=== PATIENT | female | born 1950 | race Caucasian/White ===

== ENCOUNTER 2017-06-20 10:47 | Emergency (ER) | payer MEDICARE, OTHER ==
[~2017-06-20] VITALS: Ht 157.5 cm; Wt 71.4 kg
[2017-06-20] MEDS ORDERED: CLARITIN 1010 MG/TAB PO (11:06)
[2017-06-20] MEDS ORDERED: SUDAFED 12HR120 MG PO (11:06)
[2017-06-20] MEDS ORDERED: AUGMENTIN 875-1 EAC1 PO (11:14)
[2017-06-20 11:20] VITALS: BP 134/84
== END 2017-06-20 11:23 | disposition home or self-care (01) ==
LOC: ED 10:47
DX: H92.02 Otalgia, left ear (principal); H65.02 Acute serous otitis media, left ear

== ENCOUNTER → 2017-12-07 | Outpatient (CLI) | payer MEDICARE, OTHER ==
[~2017-12-07] MED LIST: AUGMENTIN 875-1 EAC1 PO; CLARITIN 1010 MG/TAB PO; SUDAFED 12HR120 MG PO
== END ==
LOC: LAB 07:26
DX: R05 Cough (principal)

== ENCOUNTER → 2018-03-18 | Outpatient (CLI) | payer MEDICARE, OTHER ==
[2018-03-18 14:57] LABS: BASO # 0.1 (0.02-0.10); EOS # 0.2 (0.04-0.40); EOS % 2.2 % (1.0-5.0); HEMATOCRIT 36.6 % (37.0-47.0); HEMOGLOBIN 11.9 g/dL (12.5-16.0); LYMPH# 2.1 (1.50-4.00); MEAN CELL VOLUME 90 fl (78-100); MEAN CORPUSCULAR HEMOGLOBIN 29 pg (27-31); MEAN CORPUSCULAR HGB CONC 33 g/dL (33-37); MEAN PLATELET VOLUME 10.5 fl (7.4-10.4); MONO # 0.8 (0.20-0.80); NEU # 6.2 (1.40-6.50); PLATELET COUNT 349 K/mm3 (130-400); RED BLOOD COUNT 4.07 M/mm3 (4.10-5.30); RED CELL DISTRIBUTION WIDTH 14.7 % (11.5-14.5); WHITE BLOOD COUNT 9.4 K/mm3 (4.8-10.8)
[2018-03-18 15:21] LABS: ALBUMIN 4.3 g/dL (3.5-5.0); BUN/CREATININE RATIO 21.2 (6.0-26.0); CALCIUM 9.6 mg/dL (8.4-10.2); POTASSIUM 4.1 mmol/L (3.6-5.0); TOTAL BILIRUBIN 0.4 mg/dL (0.2-1.3); TOTAL PROTEIN 7.6 g/dL (6.3-8.2)
[2018-03-18 16:45] LABS: PH-URINE 6.5 (5.0 - 8.0); URINE APPEARANCE CLEAR; URINE COLOR YELLOW
[2018-03-18 16:46] LABS: URINE BILIRUBIN NEGATIVE (NEGATIVE); URINE BLOOD TRACE (NEGATIVE); URINE GLUCOSE NEGATIVE (NEGATIVE); URINE KETONE NEGATIVE (NEGATIVE); URINE LEUKOCYTE ESTERASE NEGATIVE (NEGATIVE); URINE NITRATE NEGATIVE (NEGATIVE); URINE PROTEIN(semi-quant) TRACE mg/dL (NEGATIVE); URINE UROBILINOGEN NORMAL (NORMAL)
[2018-03-19 00:47] LABS: FOLLICLE STIMULATING HORMONE 34.7 mIU/mL (()); LUTENIZING HORMONE 18.9 mIU/mL (()); PROGESTERONE 0.1 ng/mL (())
== END ==
LOC: LAB 14:13
PROVIDERS: Family Medicine
DX: Z00.00 Encounter for general adult medical examination without abnormal findings (principal); R73.9 Hyperglycemia, unspecified; E78.5 Hyperlipidemia, unspecified; R23.2 Flushing

== ENCOUNTER → 2018-04-07 | Outpatient (CLI) | payer MEDICARE, OTHER | LOC: MAMMO 08:19 | DX: Z12.31 Encounter for screening mammogram for malignant neoplasm of breast (principal) ==

== ENCOUNTER → 2018-09-08 | Outpatient (CLI) | payer MEDICARE, OTHER | LOC: RAD 07:13 | DX: K57.30 Diverticulosis of large intestine without perforation or abscess without bleeding (principal); Z90.49 Acquired absence of other specified parts of digestive tract; Z90.710 Acquired absence of both cervix and uterus | CPT/HCPCS: Q9967 ==

== ENCOUNTER → 2018-12-28 | Outpatient (CLI) | payer MEDICARE, OTHER | LOC: RAD 07:00 | DX: S83.281A Other tear of lateral meniscus, current injury, right knee, initial encounter (principal); M17.11 Unilateral primary osteoarthritis, right knee ==

== ENCOUNTER → 2019-05-01 | Outpatient (CLI) | payer MEDICARE, OTHER ==
[2019-05-01 07:15] LABS: BASO # 0.1 (0.02-0.10); EOS # 0.2 (0.04-0.40); EOS % 2.9 % (1.0-5.0); HEMATOCRIT 37.3 % (37.0-47.0); HEMOGLOBIN 11.8 g/dL (12.5-16.0); LYMPH# 2.3 (1.50-4.00); MEAN CELL VOLUME 90 fl (78-100); MEAN CORPUSCULAR HEMOGLOBIN 28 pg (27-31); MEAN CORPUSCULAR HGB CONC 32 g/dL (33-37); MEAN PLATELET VOLUME 10.2 fl (7.4-10.4); MONO # 0.5 (0.20-0.80); NEU # 2.8 (1.40-6.50); PLATELET COUNT 322 K/mm3 (130-400); RED BLOOD COUNT 4.15 M/mm3 (4.10-5.30); RED CELL DISTRIBUTION WIDTH 13.9 % (11.5-14.5); WHITE BLOOD COUNT 5.9 K/mm3 (4.8-10.8)
[2019-05-01 07:58] LABS: ALBUMIN 3.8 g/dL (3.4-4.8); CALCIUM 9.4 mg/dL (8.3-10.5); POTASSIUM 4.1 mmol/L (3.5-5.1); TOTAL PROTEIN 7.3 g/dL (6.2-8.1)
[2019-05-01 08:23] LABS: TOTAL BILIRUBIN 0.3 mg/dL (0.2-1.2)
[2019-05-01 08:26] LABS: URINE APPEARANCE HAZY; URINE BILIRUBIN NEGATIVE (NEGATIVE); URINE BLOOD 50 ery/uL (NEGATIVE); URINE COLOR YELLOW; URINE GLUCOSE NEGATIVE (NEGATIVE); URINE KETONE NEGATIVE (NEGATIVE); URINE LEUKOCYTE ESTERASE NEGATIVE (NEGATIVE); URINE MUCUS PRESENT (NOT PRESENT); URINE NITRATE NEGATIVE (NEGATIVE); URINE PROTEIN(semi-quant) TRACE mg/dL (NEGATIVE); URINE UROBILINOGEN NORMAL (NORMAL)
== END ==
LOC: LAB 06:47
PROVIDERS: Family Medicine
DX: Z00.00 Encounter for general adult medical examination without abnormal findings (principal); R73.9 Hyperglycemia, unspecified; E66.9 Obesity, unspecified; R23.2 Flushing

== ENCOUNTER → 2019-05-08 | Outpatient (CLI) | payer MEDICARE, OTHER | LOC: RAD 14:08 | DX: Z12.31 Encounter for screening mammogram for malignant neoplasm of breast (principal); R05 Cough ==

== ENCOUNTER → 2019-05-25 | Outpatient (CLI) | payer MEDICARE, OTHER | LOC: MAMMO 08:20 | DX: Z12.31 Encounter for screening mammogram for malignant neoplasm of breast (principal); R05 Cough ==

== ENCOUNTER → 2019-10-30 | Outpatient (CLI) | payer MEDICARE, OTHER ==
[2019-10-30 12:56] LABS: EOS # 0.1 (0.04-0.40); EOS % 1.6 % (1.0-5.0); HEMATOCRIT 37.5 % (37.0-47.0); HEMOGLOBIN 11.8 g/dL (12.5-16.0); MEAN CELL VOLUME 92 fl (78-100); MEAN CORPUSCULAR HEMOGLOBIN 29 pg (27-31); MEAN CORPUSCULAR HGB CONC 32 g/dL (33-37); MEAN PLATELET VOLUME 10.1 fl (7.4-10.4); MONO # 0.8 (0.20-0.80); NEU # 5.8 (1.40-6.50); PLATELET COUNT 343 K/mm3 (130-400); RED CELL DISTRIBUTION WIDTH 14.4 % (11.5-14.5); WHITE BLOOD COUNT 8.7 K/mm3 (4.8-10.8)
[2019-10-30 13:15] LABS: ALBUMIN 4.3 g/dL (3.4-4.8)
[2019-10-30 13:16] LABS: POTASSIUM 4.2 mmol/L (3.5-5.1)
[2019-10-30 13:17] LABS: CALCIUM 9.2 mg/dL (8.3-10.5)
[2019-10-30 13:18] LABS: TOTAL PROTEIN 7.8 g/dL (6.2-8.1)
[2019-10-30 13:20] LABS: TOTAL BILIRUBIN 0.4 mg/dL (0.2-1.2)
== END ==
LOC: RAD 12:38
PROVIDERS: Family Medicine
DX: K57.30 Diverticulosis of large intestine without perforation or abscess without bleeding (principal); D64.9 Anemia, unspecified

== ENCOUNTER → 2019-11-03 | Outpatient (CLI) | payer MEDICARE, OTHER | LOC: LAB 07:11 | DX: D64.9 Anemia, unspecified (principal); R10.9 Unspecified abdominal pain; R19.7 Diarrhea, unspecified ==

== ENCOUNTER → 2020-09-30 | Outpatient (CLI) | payer MEDICARE, OTHER ==
[2020-09-30 08:03] LABS: BASO # 0.1 (0.02-0.10); EOS # 0.2 (0.04-0.40); EOS % 2.5 % (1.0-5.0); HEMATOCRIT 35.9 % (37.0-47.0); HEMOGLOBIN 11.4 g/dL (12.5-16.0); LYMPH# 1.9 (1.50-4.00); MEAN CELL VOLUME 91 fl (78-100); MEAN CORPUSCULAR HEMOGLOBIN 29 pg (27-31); MEAN CORPUSCULAR HGB CONC 32 g/dL (33-37); MEAN PLATELET VOLUME 10.5 fl (7.4-10.4); MONO # 0.6 (0.20-0.80); NEU # 5.8 (1.40-6.50); PLATELET COUNT 338 K/mm3 (130-400); RED BLOOD COUNT 3.93 M/mm3 (4.10-5.30); RED CELL DISTRIBUTION WIDTH 14.2 % (11.5-14.5); TOTAL BILIRUBIN 0.4 mg/dL (0.2-1.2); WHITE BLOOD COUNT 8.5 K/mm3 (4.8-10.8)
[2020-09-30 08:29] LABS: URINE APPEARANCE CLEAR; URINE BILIRUBIN NEGATIVE (NEGATIVE); URINE COLOR YELLOW; URINE GLUCOSE NEGATIVE (NEGATIVE); URINE KETONE NEGATIVE (NEGATIVE); URINE NITRATE NEGATIVE (NEGATIVE); URINE PROTEIN(semi-quant) TRACE mg/dL (NEGATIVE); URINE UROBILINOGEN NORMAL (NORMAL)
[2020-09-30 08:30] LABS: URINE BLOOD 50 ery/uL (NEGATIVE); URINE LEUKOCYTE ESTERASE NEGATIVE (NEGATIVE); URINE MUCUS PRESENT (NOT PRESENT)
[2020-09-30 10:15] LABS: ALBUMIN 4.2 g/dL (3.4-4.8); CALCIUM 9.1 mg/dL (8.3-10.5); TOTAL PROTEIN 7.7 g/dL (6.2-8.1)
== END ==
LOC: LAB 07:09
PROVIDERS: Family Medicine
DX: Z00.00 Encounter for general adult medical examination without abnormal findings (principal); R73.9 Hyperglycemia, unspecified

== ENCOUNTER → 2020-10-07 | Outpatient (CLI) | payer MEDICARE, OTHER | LOC: RAD 09:58 | DX: Z13.820 Encounter for screening for osteoporosis (principal) ==

== ENCOUNTER → 2020-10-07 | Outpatient (CLI) | payer MEDICARE, OTHER | LOC: MAMMO 09-19 08:30 | DX: Z12.31 Encounter for screening mammogram for malignant neoplasm of breast (principal) ==

== ENCOUNTER → 2021-01-14 | Outpatient (CLI) | payer MEDICARE, OTHER ==
[~2021-01-14] MED LIST changes: +PREMARIN 0.60.625 M1 PO
== END ==
LOC: LAB 16:02
DX: E55.9 Vitamin D deficiency, unspecified (principal)

== ENCOUNTER → 2021-05-03 | Outpatient (CLI) | payer MEDICARE, OTHER | LOC: LAB 11:50 | DX: U07.1 COVID-19 (principal) ==

== ENCOUNTER 2021-07-07 16:21 | Emergency (ER) | payer MEDICARE, OTHER ==
[~2021-07-07] VITALS: Ht 157.5 cm; Wt 71.4 kg
[~2021-07-07 16:21] MED LIST changes: -PREMARIN 0.60.625 M1 PO
[2021-07-07] MEDS ORDERED: PREMARIN 0.60.625 M1 PO (16:40)
[2021-07-07 18:51] VITALS: BP 182/91
== END 2021-07-07 19:02 | disposition home or self-care (01) ==
LOC: ED 16:21
DX: S09.90XA Unspecified injury of head, initial encounter (principal); E66.9 Obesity, unspecified; Z68.28 Body mass index [BMI] 28.0-28.9, adult; W01.198A Fall on same level from slipping, tripping and stumbling with subsequent striking against other object, initial encounter

== ENCOUNTER → 2021-07-14 | Outpatient (CLI) | payer MEDICARE, OTHER ==
[~2021-07-14] MED LIST changes: +PREMARIN 0.60.625 M1 PO
[2021-07-14 07:17] LABS: HEMATOCRIT 40.1 % (37.0-47.0); HEMOGLOBIN 12.7 g/dL (12.5-16.0); MEAN PLATELET VOLUME 10.1 fl (7.4-10.4); RED BLOOD COUNT 4.4 M/mm3 (4.10-5.30); WHITE BLOOD COUNT 8.4 K/mm3 (4.8-10.8)
[2021-07-14 07:29] LABS: ALBUMIN 4.3 g/dL (3.4-4.8); POTASSIUM 4.1 mmol/L (3.5-5.1)
[2021-07-14 07:32] LABS: TOTAL PROTEIN 8.2 g/dL (6.2-8.1)
[2021-07-14 07:34] LABS: TOTAL BILIRUBIN 0.6 mg/dL (0.2-1.2)
== END ==
LOC: LAB 06:52
PROVIDERS: Family Medicine
DX: I63.81 Other cerebral infarction due to occlusion or stenosis of small artery (principal)

== ENCOUNTER → 2021-07-18 | Outpatient (CLI) | payer MEDICARE, OTHER | LOC: RAD 14:58 | DX: I63.81 Other cerebral infarction due to occlusion or stenosis of small artery (principal) ==

== ENCOUNTER → 2021-09-11 | Outpatient (CLI) | payer MEDICARE, OTHER | LOC: RAD 17:58 | DX: S06.9X0A Unspecified intracranial injury without loss of consciousness, initial encounter (principal); W19.XXXA Unspecified fall, initial encounter ==

== ENCOUNTER → 2023-12-13 | Outpatient (CLI) | payer MEDICARE, OTHER ==
[2023-12-13 07:18] LABS: BASO # 0.06 K/mm3 (0.02-0.10); EOS # 0.24 K/mm3 (0.04-0.40); EOS % 2.5 % (1.0-5.0); HEMATOCRIT 35.8 % (37.0-47.0); HEMOGLOBIN 11.7 g/dL (12.5-16.0); LYMPH# 2.38 K/mm3 (1.50-4.00); MEAN CELL VOLUME 90 fl (78-100); MEAN CORPUSCULAR HEMOGLOBIN 29 pg (27-31); MEAN CORPUSCULAR HGB CONC 33 g/dL (33-37); MEAN PLATELET VOLUME 10.1 fl (7.4-10.4); MONO # 0.69 K/mm3 (0.20-0.80); NEU # 6.18 K/mm3 (1.40-6.50); PLATELET COUNT 378 K/mm3 (130-400); WHITE BLOOD COUNT 9.6 K/mm3 (4.8-10.8)
[2023-12-13 07:40] LABS: CALCIUM 9.8 mg/dL (8.3-10.5)
[2023-12-13 07:46] LABS: MAGNESIUM 2.41 mg/dL (1.60-2.60)
[2023-12-13 18:20] LABS: FOLATE (FOLIC ACID) 19.9 ng/mL (2.0-20.0)
== END ==
LOC: LAB 07:03
PROVIDERS: Nurse Practitioner
DX: Z00.00 Encounter for general adult medical examination without abnormal findings (principal); E55.9 Vitamin D deficiency, unspecified; M79.605 Pain in left leg; Z86.2 Personal history of diseases of the blood and blood-forming organs and certain disorders involving the immune mechanism

== ENCOUNTER → 2024-01-17 | Outpatient (CLI) | payer MEDICARE, OTHER | LOC: LAB 13:07 | DX: Z20.822 Contact with and (suspected) exposure to COVID-19 (principal); R05.9 Cough, unspecified ==

== ENCOUNTER 2024-05-03 18:11 | Emergency (ER) | payer MEDICARE, OTHER ==
[~2024-05-03] VITALS: Ht 157.5 cm; Wt 73.3 kg
[2024-05-03] MEDS ORDERED: LOSARTAN POTAS100 MG PO (18:26)
[2024-05-03] MEDS ORDERED: FLUTICASONE P15.8 ML NS (18:27)
[2024-05-03] MEDS ORDERED: ASPIRIN E.C. 8181 MG PO (18:27)
[2024-05-03] MEDS ORDERED: D3-200050 MCG PO (18:28)
[2024-05-03] MEDS ORDERED: FOLIC ACID PO (18:28)
[2024-05-03] MEDS ORDERED: LORATADINE10 MG PO (18:29)
[2024-05-03] MEDS ORDERED: MELATONIN PO (18:29)
[2024-05-03] MEDS ORDERED: METAMUCIL (18:29)
[2024-05-03] MEDS ORDERED: ZINC PO (18:30)
[2024-05-03 18:35] LABS: ALBUMIN 4.3 g/dL (3.4-4.8)
[2024-05-03 18:37] LABS: CALCIUM 9.7 mg/dL (8.3-10.5)
[2024-05-03 18:40] LABS: TOTAL BILIRUBIN 0.4 mg/dL (0.2-1.2)
[2024-05-03 18:42] LABS: BASO # 0.07 K/mm3 (0.02-0.10); EOS # 0.18 K/mm3 (0.04-0.40); EOS % 1.8 % (1.0-5.0); HEMATOCRIT 34.7 % (37.0-47.0); HEMOGLOBIN 10.9 g/dL (12.5-16.0); LYMPH# 2.08 K/mm3 (1.50-4.00); MEAN CELL VOLUME 92 fl (78-100); MEAN CORPUSCULAR HEMOGLOBIN 29 pg (27-31); MEAN CORPUSCULAR HGB CONC 31 g/dL (33-37); MEAN PLATELET VOLUME 10.2 fl (7.4-10.4); MONO # 0.84 K/mm3 (0.20-0.80); NEU # 6.89 K/mm3 (1.40-6.50); PLATELET COUNT 370 K/mm3 (130-400); RED BLOOD COUNT 3.79 M/mm3 (4.10-5.30); RED CELL DISTRIBUTION WIDTH 14.3 % (11.5-14.5); WHITE BLOOD COUNT 10.1 K/mm3 (4.8-10.8)
[2024-05-03] MEDS ORDERED: Iohexol 300 - 100 ML VIAL IV ONE (18:59)
[2024-05-03] MEDS ORDERED: Piperacillin/Tazobactam Sodium 3.375 GM in NS 100 ML IV ONE (19:45)
[2024-05-03 21:04] VITALS: BP 141/75
== END 2024-05-03 21:04 | disposition home or self-care (01) ==
LOC: ED 18:11
PROVIDERS: Family Medicine
DX: K57.32 Diverticulitis of large intestine without perforation or abscess without bleeding (principal); Z90.49 Acquired absence of other specified parts of digestive tract
CPT/HCPCS: J2543; J7120; Q9967

== ENCOUNTER → 2024-08-23 | Outpatient (CLI) | payer MEDICARE, OTHER ==
[~2024-08-23] MED LIST changes: +ASPIRIN E.C. 8181 MG PO; +D3-200050 MCG PO; +FLUTICASONE P15.8 ML NS; +FOLIC ACID PO; +LORATADINE10 MG PO; +LOSARTAN POTAS100 MG PO; +MELATONIN PO; +METAMUCIL; +ZINC PO
== END ==
LOC: RAD 07:59
DX: R74.8 Abnormal levels of other serum enzymes (principal); R79.82 Elevated C-reactive protein (CRP)

== ENCOUNTER → 2024-12-07 | Outpatient (CLI) | payer MEDICARE, OTHER ==
[~2024-12-07] MED LIST changes: +ACID-PEP20 MG PO; +ASPIRIN E.C. 8181 MG; +B-COMPLEX WIT400 MC1 PO; +CIPRO250 M1 PO; +CLARITIN LIQUI-10 MG PO; +COZAAR100 MG PO; +ERTAPENEM1 GM IJ; +IMODIUM 2MG CAPS2 MG PO; +LEADER C 250 MG1 TAB PO; +METAMUCIL3.4 GM/Dos PO; +METRONIDAZOLE500 M1 PO; +ORAZINC50 MG PO; +PHARMASSURE ZIN50 MG PO; +QUERCETIN500 M1 PO; +ROXICODONE 55 MG/TAB PO; +SUNMARK PAIN R325 MG PO; +VITAMIN B121000 MC3 PO; +ZOFRAN ODT4 MG PO
[2024-12-07 17:25] LABS: BASO # 0.04 K/mm3 (0.02-0.10); EOS # 0.12 K/mm3 (0.04-0.40); HEMATOCRIT 29.4 % (37.0-47.0); LYMPH# 1.82 K/mm3 (1.50-4.00); MEAN CELL VOLUME 93 fl (78-100); MEAN CORPUSCULAR HEMOGLOBIN 28 pg (27-31); MEAN CORPUSCULAR HGB CONC 31 g/dL (33-37); MEAN PLATELET VOLUME 9.3 fl (7.4-10.4); NEU # 8.86 K/mm3 (1.40-6.50); PLATELET COUNT 823 K/mm3 (130-400); RED BLOOD COUNT 3.18 M/mm3 (4.10-5.30); RED CELL DISTRIBUTION WIDTH 15.1 % (11.5-14.5); WHITE BLOOD COUNT 12.1 K/mm3 (4.8-10.8)
[2024-12-07 17:29] LABS: ALBUMIN 3.8 g/dL (3.4-4.8)
[2024-12-07 17:30] LABS: CALCIUM 9.5 mg/dL (8.3-10.5)
[2024-12-07 17:31] LABS: TOTAL PROTEIN 8.2 g/dL (6.2-8.1)
[2024-12-07 17:33] LABS: TOTAL BILIRUBIN 0.4 mg/dL (0.2-1.2)
== END ==
LOC: LAB 17:03
PROVIDERS: Family Medicine
DX: K57.92 Diverticulitis of intestine, part unspecified, without perforation or abscess without bleeding (principal)

== ENCOUNTER → 2024-12-08 | Outpatient (CLI) | payer MEDICARE, OTHER ==
[~2024-12-08] VITALS: Ht 157.5 cm; Wt 66.0 kg
[2024-12-08 13:59] VITALS: BP 128/73
--- NOTE | 2024-12-08 13:59 | NUR ---
PATIENT HERE FOR WOUND VAC CHANGE. INCREASED DRIANAGE OF STAPLED INCISION SITE ABOVE DEHISENCE. Steffen TEE APRN NOTIFIED AND ASSESSED. JET LAVAGE TO AREA, CLEANSED WIH VASHE. MEASUREMENTS TAKEN. WOUND VAC REPLACED. PATIENT TOLERATED WELL. AWAITING CALL BACK FROM PATIENT REGARDING WEDNESDAY WOUND VAC CHANGE IF SURGEON VISIT WANTS TO VIEW SITE.
== END ==
LOC: WOUND 12:53
DX: T81.321A Disruption or dehiscence of closure of internal operation (surgical) wound of abdominal wall muscle or fascia, initial encounter (principal); K57.80 Diverticulitis of intestine, part unspecified, with perforation and abscess without bleeding

== ENCOUNTER → 2024-12-12 | Outpatient (CLI) | payer MEDICARE, OTHER ==
[~2024-12-12] VITALS: Ht 157.5 cm; Wt 66.0 kg
[2024-12-12 16:37] VITALS: BP 127/70
--- NOTE | 2024-12-12 17:18 | NUR ---
PT HERE FOR WOUND VAC DRESSING CHANGE TO MIDLINE ABDOMINAL WOUND. MINIMAL AMOUNT OF DRAINAGE NOTED IN CANISTER. WOUND BED REMAINS RED AND BEEFY. CLEANED WITH VASHE AND PATTED DRY WITH 4X4'S. PICTURES AND MEASUREMENTS TAKEN. WOUND IS 4.0CM L X 2.5CM W X 1.8CM DEEP. THERE IS NO UNDERMINING. THERE IS TUNNELLING AT 1200 OF 2.2CM. REAPPLIED THE WOUND VAC DRESSING USING WHITE FOAM IN THE WOUNDBED AND INTO THE TUNNELLED AREA. PT SYLWIA WELL. HAD LABS TODAY AND WBC REMAINS 12.7 PT SAW SURGEON TODAY AND SAID THEY ARE KEEPING HER ON ANTIBIOTICS UNTIL SHE IS OFF THE WOUND VAC. LEFT AMBULATORY WITH SPOUSE. WILL RETURN ON WEDNESDAY.
== END ==
LOC: WOUND 16:22
DX: K57.80 Diverticulitis of intestine, part unspecified, with perforation and abscess without bleeding (principal); T81.321A Disruption or dehiscence of closure of internal operation (surgical) wound of abdominal wall muscle or fascia, initial encounter

== ENCOUNTER → 2024-12-12 | Outpatient (CLI) | payer MEDICARE, OTHER ==
[2024-12-12 10:46] LABS: BASO # 0.07 K/mm3 (0.02-0.10); EOS # 0.15 K/mm3 (0.04-0.40); EOS % 1.2 % (1.0-5.0); HEMATOCRIT 28.7 % (37.0-47.0); HEMOGLOBIN 8.9 g/dL (12.5-16.0); LYMPH# 1.47 K/mm3 (1.50-4.00); MEAN CELL VOLUME 90 fl (78-100); MEAN CORPUSCULAR HEMOGLOBIN 28 pg (27-31); MEAN CORPUSCULAR HGB CONC 31 g/dL (33-37); MEAN PLATELET VOLUME 9.4 fl (7.4-10.4); MONO # 0.96 K/mm3 (0.20-0.80); NEU # 9.98 K/mm3 (1.40-6.50); PLATELET COUNT 512 K/mm3 (130-400); RED BLOOD COUNT 3.18 M/mm3 (4.10-5.30); RED CELL DISTRIBUTION WIDTH 15.1 % (11.5-14.5); WHITE BLOOD COUNT 12.7 K/mm3 (4.8-10.8)
== END ==
LOC: LAB 10:28
DX: K56.699 Other intestinal obstruction unspecified as to partial versus complete obstruction (principal); Z90.49 Acquired absence of other specified parts of digestive tract

== ENCOUNTER → 2024-12-15 | Outpatient (CLI) | payer MEDICARE, OTHER ==
[~2024-12-15] VITALS: Ht 157.5 cm; Wt 66.0 kg
[2024-12-15 08:43] VITALS: BP 115/59
--- NOTE | 2024-12-15 09:06 | NUR ---
PT HERE FOR WOUND VAC DRESSING CHANGE TO MIDLINE ABDOMINAL INCISION. WOUND APPEARS MORE SHALLOW TODAY. MINIMAL AMT YELLOW DRAINAGE IN CANISTER TODAY. CLEANED WOUND WITH VASHE AND PATTED DRY WITH 4X4. REAPPLIED WOUND VAC WITHOUT PROBLEM. PT SYLWIA WELL. LEAVES FACIITY AMBULATORY. WILL RETURN FOR VAC CHANGE ON TUESDAY 12/19. MORE SUPPLIES HAVE BEEN ORDERED PER PATIENT AND WILL ARRIVE TODAY OR TOMORROW. PT STILL ON ORAL ANTIBIOTICS.
== END ==
LOC: WOUND 08:30
DX: K57.20 Diverticulitis of large intestine with perforation and abscess without bleeding (principal); T81.321A Disruption or dehiscence of closure of internal operation (surgical) wound of abdominal wall muscle or fascia, initial encounter

== ENCOUNTER → 2024-12-19 | Outpatient (CLI) | payer MEDICARE, OTHER ==
[~2024-12-19] VITALS: Ht 157.5 cm; Wt 66.0 kg
[2024-12-19 16:46] VITALS: BP 139/68
== END ==
LOC: WOUND 15:25
DX: K57.80 Diverticulitis of intestine, part unspecified, with perforation and abscess without bleeding (principal); T81.321A Disruption or dehiscence of closure of internal operation (surgical) wound of abdominal wall muscle or fascia, initial encounter

== ENCOUNTER → 2024-12-22 | Outpatient (CLI) | payer MEDICARE, OTHER ==
[~2024-12-22] VITALS: Ht 157.5 cm; Wt 66.0 kg
[2024-12-22 16:30] VITALS: BP 145/70
--- NOTE | 2024-12-22 16:30 | NUR ---
Pt presents ambulatory for wound care and wound vac change to abdomen. Pt positioned for comfort on procedureal chair with pillow under head. Present wound vac dressing removed. Wound care performed and measurements taken - see progress note by Nithya Navarrete APRN. Pt tolerated well. Following Dressing change, seal obtained and Vac at 125. Pt will return next and . Pt leaves ambulatory with wound vac functioning properly.
== END ==
LOC: WOUND 15:42
DX: T81.42XA Infection following a procedure, deep incisional surgical site, initial encounter (principal); T81.321A Disruption or dehiscence of closure of internal operation (surgical) wound of abdominal wall muscle or fascia, initial encounter; B96.89 Other specified bacterial agents as the cause of diseases classified elsewhere; Z16.24 Resistance to multiple antibiotics

== ENCOUNTER → 2024-12-26 | Outpatient (CLI) | payer MEDICARE, OTHER ==
[~2024-12-26] VITALS: Ht 157.5 cm; Wt 66.0 kg
[2024-12-26 15:22] VITALS: BP 155/76
--- NOTE | 2024-12-26 15:23 | NUR ---
SEE PROVIDER NOTE FROM Steffen TEE APRN. PT HERE FOR WOUND VAC CHANGE TO MIDLINE ABD INCISION AREA. MEASUREMENTS AND PICTURES TAKEN TODAY. WOUND CONTINUES TO FILL IN NICELY. WOUND BED IS BEEFY RED. MINIMAL YELLOW DRAINAGE NOTED IN CANNISTER. CLEANED WITH VASHE WASH AND PATTED DRY. APPLIED COLLAGEN FOX TO WOUND BED THEN APPLIED WOUND VAC. GOOD SEAL OBTAINED WITH 125MM SUCTION. PT LEFT FACILITY AMB. WILL RETURN ON WEDNESDAY.
== END ==
LOC: WOUND 14:49
DX: T81.321A Disruption or dehiscence of closure of internal operation (surgical) wound of abdominal wall muscle or fascia, initial encounter (principal)

== ENCOUNTER → 2024-12-29 | Outpatient (CLI) | payer MEDICARE, OTHER ==
[~2024-12-29] MED LIST changes: +Iohexol 300 - 100 ML VIAL IV ONE; +NS 100 ML IV SCH
[2024-12-29 10:18] LABS: CALCIUM 9.6 mg/dL (8.3-10.5)
[2024-12-29 10:19] LABS: TOTAL PROTEIN 8.1 g/dL (6.2-8.1)
[2024-12-29 10:21] LABS: TOTAL BILIRUBIN 0.5 mg/dL (0.2-1.2)
== END ==
LOC: LAB 09:51 → RAD 09:51
PROVIDERS: Surgery
DX: K57.30 Diverticulosis of large intestine without perforation or abscess without bleeding (principal); K63.89 Other specified diseases of intestine; B99.9 Unspecified infectious disease; Z90.49 Acquired absence of other specified parts of digestive tract
CPT/HCPCS: Q9967

== ENCOUNTER → 2025-01-02 | Outpatient (CLI) | payer MEDICARE, OTHER ==
[~2025-01-02] MED LIST changes: -Iohexol 300 - 100 ML VIAL IV ONE; -NS 100 ML IV SCH
[2025-01-02 13:10] LABS: BASO # 0.05 K/mm3 (0.02-0.10); EOS # 0.24 K/mm3 (0.04-0.40); EOS % 2.8 % (1.0-5.0); HEMATOCRIT 30.6 % (37.0-47.0); HEMOGLOBIN 9.7 g/dL (12.5-16.0); LYMPH# 1.95 K/mm3 (1.50-4.00); MEAN CELL VOLUME 90 fl (78-100); MEAN CORPUSCULAR HEMOGLOBIN 28 pg (27-31); MEAN CORPUSCULAR HGB CONC 32 g/dL (33-37); MEAN PLATELET VOLUME 9.8 fl (7.4-10.4); MONO # 0.69 K/mm3 (0.20-0.80); NEU # 5.65 K/mm3 (1.40-6.50); PLATELET COUNT 429 K/mm3 (130-400); RED BLOOD COUNT 3.41 M/mm3 (4.10-5.30); RED CELL DISTRIBUTION WIDTH 15.7 % (11.5-14.5); WHITE BLOOD COUNT 8.6 K/mm3 (4.8-10.8)
== END ==
LOC: LAB 13:00
PROVIDERS: Internal Medicine Infectious Disease
DX: B99.9 Unspecified infectious disease (principal)

== ENCOUNTER → 2025-01-10 | Outpatient (CLI) | payer MEDICARE, OTHER ==
[2025-01-10 14:57] LABS: BASO # 0.04 K/mm3 (0.02-0.10); EOS # 0.19 K/mm3 (0.04-0.40); EOS % 2.1 % (1.0-5.0); HEMATOCRIT 31.9 % (37.0-47.0); HEMOGLOBIN 9.9 g/dL (12.5-16.0); MEAN CELL VOLUME 88 fl (78-100); MEAN CORPUSCULAR HEMOGLOBIN 27 pg (27-31); MEAN CORPUSCULAR HGB CONC 31 g/dL (33-37); MEAN PLATELET VOLUME 10.2 fl (7.4-10.4); MONO # 0.63 K/mm3 (0.20-0.80); NEU # 6.27 K/mm3 (1.40-6.50); PLATELET COUNT 375 K/mm3 (130-400); RED BLOOD COUNT 3.61 M/mm3 (4.10-5.30); RED CELL DISTRIBUTION WIDTH 15.6 % (11.5-14.5); WHITE BLOOD COUNT 8.8 K/mm3 (4.8-10.8)
== END ==
LOC: LAB 14:40
PROVIDERS: Internal Medicine Infectious Disease
DX: K57.92 Diverticulitis of intestine, part unspecified, without perforation or abscess without bleeding (principal); B99.9 Unspecified infectious disease

== ENCOUNTER → 2025-01-16 | Outpatient (CLI) | payer MEDICARE, OTHER ==
[~2025-01-16] VITALS: Ht 157.5 cm; Wt 66.0 kg
[2025-01-16 16:05] VITALS: BP 145/71
--- NOTE | 2025-01-16 16:17 | NUR ---
PATIENT HERE FOR WOUND CARE TO ABDOMEN. NO OPEN AREA NOTED. PHOTOGRAPHS TAKEN. Francisco TEE APRN DISCHARGED PATIENT AT THIS TIME.
--- NOTE | 2025-01-22 12:38 | NUR ---
PATIENT CALLS CLINIC AT THIS TIME TO ASK ABOUT CURRENT SCBABING OF CLOSED ABDOMINAL WOUND. PATIENT DENIES ANY DRIANGE OR MOIST FEELING TO AREA OF WOUND. PATIENT REPORTS SLIGHT SCBABING REMAINS BUT AREA LOOKS LIKE A "WHITE FILM". EDUCATED THAT AREA MAY LOOK AND FEEL THIS WAY SCAR FORMS BUT ENCOURAGED PATIENT TO COME BE SEEN IF THEY FEEL THERE IS A CHANGE IN WOUND STATUS. PATIETN DENIES NEED FOR APPT AT THIS TIME.
== END ==
LOC: WOUND 15:44
DX: T81.31XA Disruption of external operation (surgical) wound, not elsewhere classified, initial encounter (principal); Z90.49 Acquired absence of other specified parts of digestive tract

== ENCOUNTER → 2025-02-16 | Outpatient (CLI) | payer MEDICARE, OTHER | LOC: LAB 07:00 | DX: B99.9 Unspecified infectious disease (principal); I10 Essential (primary) hypertension; Z90.49 Acquired absence of other specified parts of digestive tract ==

== ENCOUNTER → 2025-02-22 | Outpatient (CLI) | payer MEDICARE ==
[~2025-02-22] MED LIST changes: +Iohexol 300 - 100 ML VIAL IV ONE; +NS 100 ML IV SCH
== END ==
LOC: RAD 14:44
DX: B99.9 Unspecified infectious disease (principal); Z90.49 Acquired absence of other specified parts of digestive tract
CPT/HCPCS: Q9967